=== PATIENT | female | born 1985 | race Two or more races ===

== ENCOUNTER 2025-01-13 09:47 | Emergency (ER) | payer BC, OTHER ==
[~2025-01-13] VITALS: Ht 154.9 cm; Wt 56.7 kg
[2025-01-13] VITALS (8 sets, daily range): BP systolic 109–132; BP diastolic 39–65; PULSE 79–103; RESP 14–22; TEMP 98.4–98.9; O2SAT 97–98
--- NOTE | 2025-01-13 10:09 | ECG ---
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
--- NOTE | 2025-01-13 11:55 | ED.PDOC ---
HPI (NEURO) HPI Comments 39F presents to the ER w/ prior MHx of Anemia;SHx of Uterine Fibroid Sx and the c/c of dizziness. Pt reports on being tired, dizzy and having SOB w/ gen weakness which has been gradually worsening. Pt reports on having really heavy or "extreme bleeding" at 0300 this morning. Denies chills, fever, N/V/D, CP. Denies any other associated symptom's, modifiers, or recent injuries or sick contact at this time. Chief Complaint: Dizziness Time Seen by MD: 11:05 Reviewed Notes: Nurses Notes, Medications, Allergies Information Source: Patient Mode of Arrival: Ambulatory Severity: Moderate Dizziness/Weakness Severity: Unable to do activities Headache Severity: Moderate Timing: Came on: Gradually Duration: Since onset Prehospital treatment: None Weakness Location: Generalized Onset: At rest Circumstances: Spontaneous Symptoms: None Before: Normal After: Normal Mentation History of: Anemia Associated Signs and Symptoms: Weakness Past Medical History PAST MEDICAL HISTORY: Anemia Surgical History: Denies all surgeries MID LEVEL PRACTITIONER History: No Pertinent MID LEVEL PRACTITIONER History, Uterine Fibroids (Sx) Family History Family History: Reviewed,noncontributory to illness, Unknown Social History Smoker: Non-Smoker Alcohol: Denies ETOH Use Drugs: Denies Drug Use Lives In: Home Constitutional: reports: weakness; denies: chills, diaphoresis, fatigue, fever, malaise, sweats, others EENTM: denies: blurred vision, double vision, ear bleeding, ear discharge, ear drainage, ear pain, ear ringing, eye pain, eye redness, hearing loss, mouth pain, mouth swelling, nasal discharge, nose bleeding, nose congestion, nose pain, photophobia, tearing, throat pain, throat swelling, voice changes, others Respiratory: reports: shortness of breath; denies: cough, hemoptysis, orthopnea, SOB at rest, SOB with excertion, stridor, wheezing, others Cardiovascular: denies: chest pain, dizzy spells, diaphoresis, Dyspnea on exertion, edema, irregular heart beat, left arm pain, lightheadedness, palpitations, PND, syncope, others Gastrointestinal: denies: abdomen distended, abdominal pain, blood streaked bowels, constipated, diarrhea, dysphagia, difficulty swallowing, hematemesis, melena, nausea, poor appetite, poor fluid intake, rectal bleeding, rectal pain, vomiting, others Genitourinary: denies: abnormal vagina bleeding, burning, dyspareunia, dysuria, flank pain, frequency, hematuria, incontinence, pain, , vagina discharge, urgency, others Neurological: reports: dizziness; denies: fainting, headache, left sided numbness, left sided weakness, numbness, paresthesia, pre-existing deficit, right sided numbness, right sided weakness, seizure, speech problems, tingling, tremors, weakness, others Musculoskeletal: denies: back pain, gout, joint pain, joint swelling, muscle pain, muscle stiffness, neck pain, others Integumetry: denies: bruises, change in color, change in hair/nails, dryness, laceration, lesions, lumps, rash, wounds, others Allergic/Immunocompromised: denies: Difficulty Healing, Frequent Infections, Hives, Itching, others Hematologic/Lymphatic: denies: anemia, blood clots, easy bleeding, easy bruising, swollen glands, others Endocrine: denies: excessive hunger, excessive sweating, excessive thirst, excessive urination, flushing, intolerance to cold, intolerance to heat, unexplained weight gain, unexplained weight loss, others Psychiatric: denies: anxiety, bipolar disorder, depression, hopeless, panic disorder, schizophrenia, sleepless, suicidal, others All Other Systems: Reviewed and Negative Physical Exam General Appearance: Moderate Distress, Normal HEENT: Normal ENT Inspection, Pale Conjuntivae (L), Pale Conjuntivae (R), PERRL/EOMI, Pharynx Normal, TMs Normal Neck: Full Range of Motion, Non-Tender, Normal, Normal Inspection Respiratory: Chest Non-Tender, Lungs Clear, No Accessory Muscle Use, No Respiratory Distress, Normal Breath Sounds Cardiovascular: No Edema, No JVD, No Gallop, Normal Peripheral Pulses, Regular Rate/Rhythm, Systolic Murmur, Tachycardia Breast Exam: Deferred Gastrointestinal: Distended, Mass, Normal Bowel Sounds, Suprapubic, Tenderness, Other (Pelvic mass indurated the patient been tender) Genitalia: Deferred Pelvic: Mass, Vaginal Bleeding Rectal: Mass Extremities: Leg edema, No calf tenderness, Pedal edema, Slow capillary refill, Swelling, Other (Venous stasis dermatitis) Musculoskeletal : Apperance: Normal Neurologic: Alert, steel layer II-XII nml as Tested, No Motor Deficits, No Sensory Deficits, Other Cerebellar Function: Normal Reflexes: Normal Skin: Dry, Pallor, Warm Peripheral Pulses: 1+ carotid (R), 1+ carotid (L) Lymphatic: No Adenopathy EKG EKG : Pulse Rate (adult): 105 [place]: Normal Cardiac Rhythm: NSR, PVC's Hypertrophy: LAE ST: Inf, Ant, Lat, Ischemia Was a procedure done? Was a procedure done?: No Differential Diagnosis (SZ) Seizure: Hypocalcemia, Hypoglycemia, Hyponatremia, Hypoxemia CVA: Electrolyte Imbalance, Hypoglycemia, Hypoxemia, Mass Lesion General Weakness: Anemia, Dehydration, Dysrhythmia, Electrolyte imbalance, Hypovolemia, Renal failure Headache: Mass Lesion X-Ray, Labs, Meds, VS Vital Signs Date Time Temp Pulse Resp B/P (MAP) Pulse Ox O2 Delivery O2 Flow Rate FiO2 01/13/25 16:27 98.8 86 14 123/65 98.8 01/13/25 15:00 98.9 84 22 129/64 (85) 100 98.9 01/13/25 14:30 98.9 92 16 109/39 98.9 01/13/25 14:15 98.9 89 22 121/59 98.9 01/13/25 14:08 98.4 96 22 125/59 98.4 01/13/25 14:00 98.4 96 22 125/59 (81) 100 98.4 01/13/25 12:03 105 01/13/25 12:00 98.3 103 20 128/49 (75) 97 98.3 01/13/25 12:00 103 20 97 Room Air* 0 21 01/13/25 09:59 105 01/13/25 09:56 99.1 107 17 139/66 (90) 99 99.1 Lab Test 01/13/25 12:42 01/13/25 12:20 01/13/25 10:06 Range/Units White Blood Count 3.3 L 4.4-10.8 10^3/uL Red Blood Count 1.95 L 4.0-5.20 10^6/uL Hemoglobin 2.4 *L 12.2-16.2 g/dL Hematocrit 9.8 L 36.0-46.0 % Mean Corpuscular Volume 50.0 L 80.0-100.0 fL Mean Corpuscular Hemoglobin 12.4 L 28.0-32.0 pg Mean Corpuscular Hemoglobin Concent 24.7 L 32.0-36.0 g/dL Red Cell Distribution Width 23.0 H 11.8-14.3 % Platelet Count 176 140-450 10^3/uL Mean Platelet Volume 8.4 6.9-10.8 fL Neutrophils (%) (Auto) 63.7 37.0-80.0 % Lymphocytes (%) (Auto) 27.2 10.0-50.0 % Monocytes (%) (Auto) 6.6 0.0-12.0 % Eosinophils (%) (Auto) 0.7 0.0-7.0 % Basophils (%) (Auto) 1.8 0.0-2.0 % Neutrophils # (Auto) 2.1 1.6-8.6 10 ^3/uL Lymphocytes # (Auto) 0.9 0.4-5.4 10 ^3/uL Monocytes # (Auto) 0.2 0-1.3 10 ^3/uL Eosinophils # (Auto) 0 0-0.8 10 ^3/uL Basophils # (Auto) 0.1 0-0.2 10 ^3/uL Nucleated Red Blood Cells 1.5 % Platelet Estimate Adequate Polychromasia Slight Hypochromasia (manual) Marked Poikilocytosis (manual) Slight Anisocytosis (manual) Moderate Microcytosis Marked Tear Drop Cells Few Prothrombin Time 13.0 H 9.3-11.8 sec Prothrombin Time INR 1.25 H 0.9-1.15 Activated Partial Thromboplast Time 26.5 24.5-34.5 SEC Sodium Level 141 136-145 mmol/L Potassium Level 3.6 3.5-5.1 mmol/L Chloride Level 109 H 98-107 mmol/L Carbon Dioxide Level 22 20-31 mmol/L Anion Gap 10 5-15 Blood Urea Nitrogen 5 L 9-23 mg/dL Creatinine 0.53 L 0.550-1.02 mg/dL Glomerular Filtration Rate Calc 121 >90 mL/min BUN/Creatinine Ratio 9.4 L 10.0-20.0 Serum Glucose 97 74-106 mg/dL Calcium Level 8.2 L 8.7-10.4 mg/dL Magnesium Level 2.2 1.6-2.6 mg/dL Total Bilirubin 1.2 H 0.2-1.0 mg/dL Aspartate Amino Transferase (AST) 9 L 13-40 U/L Alanine Aminotransferase (ALT) < 9 7-40 U/L Alkaline Phosphatase 87 46-116 U/L Total Protein 6.6 5.7-8.2 g/dL Albumin 4.4 3.2-4.8 g/dL Lipase 41 12-53 U/L Beta HCG, Quantitative 0.9 L 1.5-4.2 mIU/mL Urine Color Light-yellow Yellow Urine Clarity Hazy H Clear Urine pH 6.5 5.0-9.0 Urine Specific [place] 1.010 1.001-1.035 Urine Protein Negative Negative Urine Ketones Negative Negative Urine Blood 3+ H Negative /uL Urine Nitrite Negative Negative Urine Bilirubin Negative Negative Urine Urobilinogen 3 H Negative mg/dL Urine Leukocyte Esterase Trace Negative /uL Urine RBC 16 0 - 4 /hpf Urine Microscopic WBC 2 0-5 /HPF Urine Squamous Epithelial Cells Few <5 /hpf Urine Bacteria None seen None Seen /hpf Urine Glucose Normal Normal mg/dL POC Glucose 128 H 70-106 mg/dl Current Medications Medications (Trade) Dose Ordered Sig/Christopher Route Start Time Stop Time Status Last Admin Sodium Chloride 1,000 ml @ 1,000 mls/hr Q1H ONCE IVB 01/13/25 12:15 01/13/25 13:14 DC 01/13/25 12:31 X-Ray, Labs, Meds, VS Comment Course in the emergency department eventful patient came in complaining of dizziness she is very pale and had vaginal bleeding persistently Chest x-ray is normal EKG is shows some sinus tachycardia at 105 with a PVCs left atrial enlargement and global ischemia CBC 3300 with 63% neutrophils H&H 2.4 and nine point heat CMP normal Urine shows 3+ blood INR at 1.25 Magnesium 2.[address] abdomen and pelvis shows a large fibroid mass occupying large amount of the abdomen with a bilateral hydro and ureteral nephrosis Patient will be admitted for further care while in the ER patient is being transfused using at least 4 units Consultation with doctor jenkins After consultation with Dr. Coates patient will be transferred to higher level of care Time of 1ST Reevaluation: 11:35 Reevaluation 1ST: Unchanged Time of 2ND Reevaluation: 15:17 Reevaluation 2ND: Unchanged Patient Education/Counseling: Diagnosis, Treatment, Prognosis Family Education/Counseling: Diagnosis, Treatment, Prognosis, No Family Present Departure 1 Departure Time of Disposition: 15:19 Impression: Primary Impression: Acute blood loss anemia Additional Impressions: Abnormal electrocardiogram Pelvic mass in female Bilateral hydronephrosis Disposition: ADMITTED INPATIENT Admit to: Tele Condition: Guarded Critical Care Note Critical Care Time?: No Stability Stability form required: Yes Comments She will be stable for transfer she will go to [facility] accepted by the emergency department . Dr. Heart Unstable for transfer: Telemetry monitoring (Telemetry monitoring required), Requires medication (Requires Med for stabilization) Heart Score Heart Score: Heart Score Response (Comments) Value History Slightly Suspicious 0 EKG Repolarization Disturb 1 Age <45 0 Risk Factors No known risk factors 0 Troponin N/A 0 Total 1 I personally scribed for OPAL SANFORD MD ([email or web address]) on 01/13/25 at 11:55. Electronically submitted by Danilo Aceves ([email or web address]). OPAL SANFORD MD January 13, 2025 11:55
[2025-01-13 12:31] LABS: Urine Bacteria None Seen /hpf (None Seen)
[2025-01-13] MEDS: SODIUM CHLORIDE 0.9% 1,000 ML IVB ONE (12:31)
[2025-01-13 12:52] LABS: Urine Blood 3+ /uL (Negative); Urine Color Light-Yellow (Yellow); Urine Protein, UAD Negative (Negative); Urine Squamous Epithelial Cell FEW /hpf (<5); Urine Urobilinogen 3 mg/dL (Negative); Urine WBC 2 /HPF (0-5); Urine pH 6.5 (5.0-9.0)
[2025-01-13 12:58] LABS: Urine Clarity Hazy (Clear)
[2025-01-13 13:06] LABS: Basophils # (auto) 0.1 10 ^3/uL (0-0.2); Eosinophils # (auto) 0 10 ^3/uL (0-0.8); Lymphocytes # (auto) 0.9 10 ^3/uL (0.4-5.4); Monocytes # (auto) 0.2 10 ^3/uL (0-1.3); Neutrophils # (auto) 2.1 10 ^3/uL (1.6-8.6); White Blood Cell 3.3 10^3/uL (4.4-10.8)
[2025-01-13 13:09] LABS: Basophils % (auto) 1.8 % (0.0-2.0); Eosinophils % (auto) 0.7 % (0.0-7.0); Hematocrit 9.8 % (36.0-46.0); Lymphocytes % (auto) 27.2 % (10.0-50.0); Mean Corpuscular Hemoglobin 12.4 pg (28.0-32.0); Mean Corpuscular Hgb Conc. 24.7 g/dL (32.0-36.0); Monocytes % (auto) 6.6 % (0.0-12.0); Neutrophils % (auto) 63.7 % (37.0-80.0); Nucleated Red Blood Cells % 1.5 %; Platelet Count (auto) 176 10^3/uL (140-450); Red Blood Cells 1.95 10^6/uL (4.0-5.20)
[2025-01-13 13:14] LABS: Hemoglobin 2.4 g/dL (12.2-16.2)
[2025-01-13 13:24] LABS: Albumin 4.4 g/dL (3.2-4.8); Alkaline Phosphatase 87 U/L (46-116); Anion Gap 10 (5-15); Anisocytosis Moderate; BUN/Creatinine Ratio 9.4 (10.0-20.0); Carbon Dioxide 22 mmol/L (20-31); Glucose 97 mg/dL (74-106); Hypochromia Marked; Lipase 41 U/L (12-53); Magnesium 2.2 mg/dL (1.6-2.6); Polychromasia Slight; Potassium 3.6 mmol/L (3.5-5.1); Sodium 141 mmol/L (136-145); Tear Drop Cells FEW; Total Protein 6.6 g/dL (5.7-8.2)
[2025-01-13 13:25] LABS: Platelet Estimate Adequate
[2025-01-13 13:27] LABS: Alanine Aminotransferase < 9 U/L (7-40); Aspartate Aminotransferase 9 U/L (13-40); Bilirubin, Total 1.2 mg/dL (0.2-1.0); Blood Urea Nitrogen 5 mg/dL (9-23); Calcium 8.2 mg/dL (8.7-10.4); Chloride 109 mmol/L (98-107)
[2025-01-13 13:31] LABS: INR 1.25 (0.9-1.15); Partial Thromboplastin Time 26.5 SEC (24.5-34.5)
--- NOTE | 2025-01-13 14:17 | DVH ---
XY CHEST TWO VIEWS ROUTINE CLINICAL HISTORY: Severe anemia COMPARISON: None TECHNIQUE: Frontal and lateral view of the chest was obtained FINDINGS: Lines and Tubes: None Lungs: No focal consolidation. Pleura: No effusion. No pneumothorax. Cardiomediastinal contours: Unremarkable Bones: No acute osseous abnormality. IMPRESSION: 1. No pulmonary masses present
[2025-01-13] MEDS: IOHEXOL 300 MG/ML 100ML BOTTLE IJ ONE (14:25)
--- NOTE | 2025-01-13 14:28 | DVH ---
Exam: CT CT AB PEL WITH IV CON ONLY History: Severe blood loss anemia TECHNIQUE: Multiple contiguous axial CT images of the abdomen and pelvis were obtained with intraveno us contrast. The images were reformatted to generate coronal and sagittal reconstructions. 100 cc of Omnipaque 350 contrast was injected intravenously. All CT scans at this medical facility are performed using dose modulation techniques as appropriate t o a performed exam including the following:Automated exposure control was utilized; adjustment of the MA and/or KV according to patient size; and use of iterative reconstruction technique. Radiation Dose Information: CT Dose: CTDI volume is 5.32 mGy. Dose-length product is 300.79 mGy*cm Comparison: None FINDINGS: There is a very large, approximately 10.4 x 18.0 x 16.1 cm (AP by transverse by cc) heterogeneous deg enerating uterine fundal fibroid filling a large portion of the mid and lower abdominal cavity. There is mild bilateral hydro nephrosis and proximal hydroureter likely secondary to compression of t he distal ureter by the mass. There is no evidence of nephrolithiasis. The liver, gallbladder, pancreas, adrenal glands, and spleen appear within normal limits. There is no evidence of abdominal lymphadenopathy. There is no free fluid or free air. The stomach grossly appears unremarkable. There are no dilated small or large bowel loops. The small bowels are displaced peripherally by the large mass. Normal-appearing appendix is seen in the right l ower quadrant abdomen. The abdominal aorta and IVC appear within normal limits. The bladder appears within normal limits the degree of distention. There is no gross evidence of a p elvic mass . There is small amount of free fluid in the pelvis. Lung bases are clear. There is no acute osseous abnormality. IMPRESSION: 1. Very large heterogeneous degenerating uterine fundal fibroid filling a large portion of the mid an d lower abdominal cavity. This measures approximately 10.4 x 18.0 x 16.1 cm. Surgical consultation is recommended. 2. There is likely compression of the distal ureters by the mass with mild bilateral hydronephrosis a nd proximal hydroureter. HS:Y
--- NOTE | 2025-01-13 17:11 | DVHINCON2 ---
Date of service: January 13, [address] cee Reason for Consultation pt is admitted for dizziness,weakness and sob.she was found to have hgb of 2.4 she reports heavy bleeding each month and reports some sort of surgery perhaps ablation two yrs ago in [place].she had pap 2 yrs ago History of Present Illness anemia Past Medical History elderly companion surgery for aub,fibroid Past Surgical History elderly companion surgery for fibroid unknown Family History na Social History na Allergies: Coded Allergies: NO KNOWN ALLERGIES (Unverified , 01/13/25) Review of Systems Constitutional: no fever, chill, weight loss,pos for weakness HEENT: no eye pain, no hearing loss, no oral lesion, no scleral icterus Heart: no chest pain, no chest pressure,pos sob Lung: no cough, no dyspnea with exertion Abdomen: see HPI : no pain with urination, normal appearing urine,pos fo rvag bleeding Musculoskeletal: no joint pain, no muscle pain Neurological: no seizure, no loss of sensation, no weakness in extremities Pysch: no depression, no anxiety Derm: no rash, no jaundice Vital Signs Vital Signs Date Time Temp Pulse Resp B/P (MAP) Pulse Ox O2 Delivery O2 Flow Rate FiO2 01/13/25 16:45 98.4 84 16 130/51 98.4 01/13/25 15:00 100 01/13/25 12:00 Room Air* 0 21 Physical Exam SKIN: [pale] HEENT: [pale conjuctiveae] NECK: [nl] CARDIAC: [tachy rate] PULMONARY: [cta] ABDOMEN: [soft,midline 20 wks size uterus ] MUSCULOSKELETAL: [nl] NEURO: [nl] pelvic-vag nl,,ext genitalia nl,cx nl,uterus 20wks size Labs/Diagnostic Data Labs Test 01/13/25 12:42 01/13/25 12:20 01/13/25 10:06 Range/Units White Blood Count 3.3 L 4.4-10.8 10^3/uL Red Blood Count 1.95 L 4.0-5.20 10^6/uL Hemoglobin 2.4 *L 12.2-16.2 g/dL Hematocrit 9.8 L 36.0-46.0 % Mean Corpuscular Volume 50.0 L 80.0-100.0 fL Mean Corpuscular Hemoglobin 12.4 L 28.0-32.0 pg Mean Corpuscular Hemoglobin Concent 24.7 L 32.0-36.0 g/dL Red Cell Distribution Width 23.0 H 11.8-14.3 % Platelet Count 176 140-450 10^3/uL Mean Platelet Volume 8.4 6.9-10.8 fL Neutrophils (%) (Auto) 63.7 37.0-80.0 % Lymphocytes (%) (Auto) 27.2 10.0-50.0 % Monocytes (%) (Auto) 6.6 0.0-12.0 % Eosinophils (%) (Auto) 0.7 0.0-7.0 % Basophils (%) (Auto) 1.8 0.0-2.0 % Neutrophils # (Auto) 2.1 1.6-8.6 10 ^3/uL Lymphocytes # (Auto) 0.9 0.4-5.4 10 ^3/uL Monocytes # (Auto) 0.2 0-1.3 10 ^3/uL Eosinophils # (Auto) 0 0-0.8 10 ^3/uL Basophils # (Auto) 0.1 0-0.2 10 ^3/uL Nucleated Red Blood Cells 1.5 % Platelet Estimate Adequate Polychromasia Slight Hypochromasia (manual) Marked Poikilocytosis (manual) Slight Anisocytosis (manual) Moderate Microcytosis Marked Tear Drop Cells Few Prothrombin Time 13.0 H 9.3-11.8 sec Prothrombin Time INR 1.25 H 0.9-1.15 Activated Partial Thromboplast Time 26.5 24.5-34.5 SEC Sodium Level 141 136-145 mmol/L Potassium Level 3.6 3.5-5.1 mmol/L Chloride Level 109 H 98-107 mmol/L Carbon Dioxide Level 22 20-31 mmol/L Anion Gap 10 5-15 Blood Urea Nitrogen 5 L 9-23 mg/dL Creatinine 0.53 L 0.550-1.02 mg/dL Glomerular Filtration Rate Calc 121 >90 mL/min BUN/Creatinine Ratio 9.4 L 10.0-20.0 Serum Glucose 97 74-106 mg/dL Calcium Level 8.2 L 8.7-10.4 mg/dL Magnesium Level 2.2 1.6-2.6 mg/dL Total Bilirubin 1.2 H 0.2-1.0 mg/dL Aspartate Amino Transferase (AST) 9 L 13-40 U/L Alanine Aminotransferase (ALT) < 9 7-40 U/L Alkaline Phosphatase 87 46-116 U/L Total Protein 6.6 5.7-8.2 g/dL Albumin 4.4 3.2-4.8 g/dL Lipase 41 12-53 U/L Beta HCG, Quantitative 0.9 L 1.5-4.2 mIU/mL Urine Color Light-yellow Yellow Urine Clarity Hazy H Clear Urine pH 6.5 5.0-9.0 Urine Specific [place] 1.010 1.001-1.035 Urine Protein Negative Negative Urine Ketones Negative Negative Urine Blood 3+ H Negative /uL Urine Nitrite Negative Negative Urine Bilirubin Negative Negative Urine Urobilinogen 3 H Negative mg/dL Urine Leukocyte Esterase Trace Negative /uL Urine RBC 16 0 - 4 /hpf Urine Microscopic WBC 2 0-5 /HPF Urine Squamous Epithelial Cells Few <5 /hpf Urine Bacteria None seen None Seen /hpf Urine Glucose Normal Normal mg/dL POC Glucose 128 H 70-106 mg/dl Primary Diagnosis severe anemia/menorrhagia 2' Diagnosis/Comorbidities symptomatic fibroid uterus Plan transfer to [facility] ,spoke to dr corey for transfer pt is being transfused pt agrees with transfer Plan discussed with: Patient Visit Coding OBGYN Date of Service: January 13, 2025 Billing Provider: ROBIN KELLY DO [employer] Common Visit Codes: [id number] OBS CARE (HIGH), 80722-UIR/OBS DISCH DAY >30MIN ROBIN KELLY DO January 13, 2025 17:11
== END 2025-01-13 16:13 | disposition short-term general hospital (02) ==
LOC: ER 09:47
DX: D62 Acute posthemorrhagic anemia (principal); R19.09 Other intra-abdominal and pelvic swelling, mass and lump; N13.30 Unspecified hydronephrosis; Z79.899 Other long term (current) drug therapy
CPT/HCPCS: 36415; 36430; 71046; 74177; 80053; 81001; 82947; 83690; 83735; 84702; 85025; 85610; 85730; 86850; 86900; 86901; 86920; 93005; 96360; 99285; J7030; P9016; Q9967; 82962